=== PATIENT | female | born 1960 | race African-American/Black ===

== ENCOUNTER 2018-04-27 15:16 | Observation (INO) | payer OTHER ==
--- NOTE | 2018-04-27 16:40 | RAD REPORT ---
EXAM DESCRIPTION: CT - [id number] - 04/27/2018 4:32 pm CLINICAL HISTORY: Trauma, head and neck injury. fall COMPARISON: <Comparisons> TECHNIQUE: Axial 5 mm thick images of the head were obtained. Axial 2 mm thick images of the cervical spine were obtained with sagittal and coronal reconstruction images generated and reviewed. All CT scans are performed using dose optimization technique as appropriate and may include automated exposure control or mA/KV adjustment according to patient size. FINDINGS: CT HEAD WITHOUT CONTRAST: No acute hemorrhage, hydrocephalus or extra-axial collection is identified.Moderate generalized brain atrophy is present with mild periventricular and deep white matter chronic microvascular ischemic ch anges.No areas of brain edema or midline shift. The paranasal sinuses and mastoids are clear.The calvarium is intact. CT CERVICAL SPINE WITHOUT CONTRAST: No fracture or subluxation.Moderate cervical degenerative change.No prevertebral soft tissues swellin g is identified. IMPRESSION: No acute intracranial or cervical spine findings. Moderate cervical degenerative change.
--- NOTE | 2018-04-27 17:01 | RAD REPORT ---
EXAM DESCRIPTION: RAD - Pelvis - 04/27/2018 4:53 pm CLINICAL HISTORY: fall COMPARISON: No comparisons FINDINGS: The bones are demineralized. Mild osteoarthritis of both hips. No fracture or dislocation seen. No aggressive marrow lesion. Prominent fecal material in colon. IMPRESSION: No acute finding demonstrated.
--- NOTE | 2018-04-27 17:01 | RAD REPORT ---
EXAM DESCRIPTION: RAD - Chest Single View - 04/27/2018 4:53 pm CLINICAL HISTORY: fall Chest pain. COMPARISON: No comparisons FINDINGS: Portable technique limits examination quality. The lungs are grossly clear. The heart is normal in size. No displaced fractures. IMPRESSION: No acute intrathoracic process suspected.
[2018-04-27 17:13] LABS: Absolute Lymphocytes (CBC) 2.2 K/uL (0.7-4.9); Absolute Monocytes 0.7 K/uL (0.1-1.3); Absolute Neutrophil 3.9 K/uL (1.8-8.0); Basophils % 0.6 % (0-1.3); Eosinophils % 3.2 % (0-4.4); Hematocrit 35.4 % (36.0-45.0); Lymphocytes % 30.6 % (15.3-44.8); MCH 34.2 pg (27.0-35.0); MCV 100.8 fL (80-100); MPV 8.2 fL (7.6-11.3); Monocytes % 10.2 % (3.3-12.3); RBC Red Blood Cell Count 3.51 M/uL (3.86-4.86)
[2018-04-27 17:24] LABS: Potassium 3.7 mmol/L (3.5-5.1)
[2018-04-27] MEDS ORDERED: NACHLORIDE 0.45% 1,000 ML IV ONE (18:15)
--- NOTE | 2018-04-27 18:24 | EDPHYS ---
Physician Documentation [facility] Name: Jammie Muñoz Age: 58 yrs Sex: Female : 1960 Arrival Date: 04/27/2018 Time: 15:18 Bed 16 Private MD: ED Physician Ernesto Beltre HPI: 04/27 16:03 This 58 yrs old Black Female presents to ER via EMS with complaints of Head Injury cp Without LOC-Adult. 16:03 The patient or guardian reports injury. Context of injury: resulted from a fall. cp 16:03 Onset: The symptoms/episode began/occurred just prior to arrival. Associated signs and cp symptoms: Pertinent negatives: vomiting, fever. Nurse reports EMS was called to [facility] after patient was found on floor in room, alert and holding head. Historical: - Allergies: 20:14 No Known Allergies; lp1 - Home Meds: 20:46 amlodipine 5 mg tab 1 tab once daily [Active]; clonazepam 0.5 mg Oral tab 1 tab 2 times lp1 per day [Active]; Depakote ER 250 mg Oral Tb24 once daily [Active]; Depakote ER 500 mg Oral Tb24 twice a day [Active]; docusate sodium 100 mg Oral cap 1 cap 2 times per day [Active]; ferrous sulfate 325 mg (65 mg iron) Oral tab twice a day [Active]; folic acid 1 mg Oral tab 1 tab once daily [Active]; Lipitor 10 mg Oral tab nightly [Active]; Miralax 17 gram/dose Oral powd once daily [Active]; Nuedexta 20-10 mg oral cap 1 cap every 12 hours [Active]; trazodone 50 mg Oral tab nightly [Active]; Zyprexa 5 mg Oral tab 1 tab once daily [Active]; Zyprexa 15 mg Oral tab 1 tab once daily [Active]; Zyrtec 10 mg Oral tab 1 tab once daily [Active]; - PMHx: 20:50 Bipolar disorder; schizoaffective disorder; colon cancer; Dementia; Hypertension; lp1 Hyperlipidemia; constipation; Anxiety; Iron defeciency anemia; Pseudobulbar affect; Folate defeciency anemia; - PSHx: 20:50 Colon cancer surgery; lp1 - Immunization history:: Adult Immunizations unknown. - Social history:: Smoking status: unknown. - Ebola Screening: : No symptoms or risks identified at this time. ROS: 16:10 Constitutional: Negative for fever. cp 16:10 Abdomen/GI: Negative for vomiting. 16:10 Neuro: Negative for altered mental status. 16:10 Unable to obtain ROS due to baseline dementia. Exam: 16:15 Constitutional: The patient appears in no acute distress, alert, awake, cp non-diaphoretic, well developed, frail. 16:15 Head/Face: Normocephalic, atraumatic. cp 16:15 Eyes: Periorbital structures: appear normal, Pupils: equal, round, and reactive to light and accomodation, Conjunctiva: normal, no exudate, no injection, Sclera: no appreciated abnormality, Lids and lashes: appear normal, bilaterally. 16:15 ENT: External ear(s): are unremarkable, Ear canal(s): are normal, clear, TM's: bulging, is not appreciated, bilaterally, dullness, bilaterally, erythema, is not appreciated, bilaterally, Nose: is normal, Mouth: Lips: dry, Oral mucosa: moist, Posterior pharynx: Airway: no evidence of obstruction, patent. 16:15 Neck: C-spine: vertebral tenderness, is not appreciated, crepitus, is not appreciated. 16:15 Chest/axilla: Inspection: normal, Palpation: is normal, no crepitus, no tenderness. 16:15 Cardiovascular: Rate: normal, Rhythm: regular, Pulses: Pulses are 2+ in right radial artery and left radial artery. Edema: is not appreciated, JVD: is not appreciated. 16:15 Respiratory: the patient does not display signs of respiratory distress, Respirations: normal, no use of accessory muscles, no retractions, no splinting, no tachypnea, labored breathing, is not present, Breath sounds: are clear throughout, no decreased breath sounds, no stridor, no wheezing. 16:15 Abdomen/GI: Inspection: abdomen appears normal, Bowel sounds: active, all quadrants, Palpation: abdomen is soft and non-tender, in all quadrants, rebound tenderness, is not appreciated, involuntary guarding, is not appreciated. 16:15 Back: vertebral tenderness, is not appreciated. 16:15 Skin: cellulitis, is not appreciated, no rash present. cp 18:35 ECG was reviewed by the Attending Physician. cp Vital Signs: 15:27 BP 156 / 92; Pulse 77; Resp 18 S; Temp 97.2; Pulse Ox 96% on R/A; Pain 0/10; sg 16:30 BP 150 / 90; Pulse 77; Resp 16 S; Pulse Ox 98% on R/A; jl7 18:11 BP 143 / 90; Pulse 64; Resp 16 S; Pulse Ox 100% on R/A; jl7 20:15 BP 151 / 94; Pulse 74; Resp 18; Pulse Ox 100% on R/A; jb4 21:45 BP 177 / 108; Pulse 68; Resp 18; Pulse Ox 100% on R/A; jb4 Hui Coma Score: 15:27 Eye Response: to voice(3). Verbal Response: inappropriate words(3). Motor Response: sg withdraws from pain(4). Total: 10. Trauma Score (Adult): 15:27 Eye Response: spontaneous(1); Verbal Response: inappropriate words(0); Motor Response: sg localizes pain(1); Systolic BP: > 89 mm Hg(4); Respiratory Rate: 10 to 29 per min(4); Hui Score: 12; Trauma Score: 10 MDM: 15:19 Patient medically screened. cp 16:00 Differential diagnosis: Contusion of Intracranial bleed- electrolyte abnormality, cp seizure, dehydration. 18:00 Data reviewed: vital signs, nurses notes, lab test result(s), radiologic studies, CT cp scan, plain films. 18:00 Test interpretation: by ED physician or midlevel provider: plain radiologic studies. 18:30 Physician consultation: Griselda Kamara MD was contacted at 18:20, regarding admission, cp to the telemetry unit. patient's condition. 04/27 15:28 Order name: Basic Metabolic Panel; Complete Time: 17:36 04/27 15:28 Order name: CBC with Diff; Complete Time: 17:24 04/27 17:24 Interpretation: Normal except: RBC 3.51; HCT 35.4; MCV 100.8; RDW 16.3. 04/27 15:28 Order name: Creatinine for Radiology; Complete Time: 17:36 04/27 15:28 Order name: Type And Screen; Complete Time: 17:48 04/27 16:03 Order name: CK; Complete Time: 17:36 04/27 17:50 Order name: ABO/RH no charge; Complete Time: 17:51 EDWA 04/27 17:51 Interpretation: Reviewed. 04/27 15:38 Order name: XRAY Chest (1 view); Complete Time: 17:06 04/27 17:48 Interpretation: Report review. 04/27 15:38 Order name: XRAY Pelvis; Complete Time: 17:06 04/27 18:24 Order name: Osmolality, Serum 04/27 18:36 Order name: Troponin I 04/27 19:51 Order name: Urine Dipstick--Ancillary (enter results) ms 04/27 19:51 Order name: Urine --Ancillary (enter results) ms 04/27 20:31 Order name: Urine --Ancillary EDWA 04/27 20:31 Order name: Urine Dipstick-Ancillary EDWA 04/27 15:28 Order name: Labs collected and sent; Complete Time: 19:12 04/27 15:28 Order name: EKG; Complete Time: 15:29 04/27 15:28 Order name: EKG - Nurse/Tech; Complete Time: 19:13 04/27 15:38 Order name: CT Head C Spine; Complete Time: 17:06 04/27 17:07 Interpretation: Reviewed report. 04/27 18:24 Order name: Urine Dipstick-Ancillary (obtain specimen); Complete Time: 19:04 04/27 19:32 Order name: Diet 2 Gm Sodium; Complete Time: 19:33 cp EC:35 Rate is 62 beats/min. Rhythm is regular. TN interval is shortened at 110 msec. QRS cp interval is normal. QT interval is normal. Interpreted by me. Reviewed by me. Administered Medications: Discontinued: NS 0.45 % 1000 ml IV at 125 ml/hr continuous 17:42 CANCELLED (Physician Discretion): NS 0.45 % 1000 ml IV at bolus once cp 18:11 Drug: NS 0.45 % 1000 ml Route: IV; Rate: 125 ml/hr; Site: left upper arm; jl7 18:27 Follow up: IV Status: Order to discontinue infusion jl7 19:40 Drug: D5W 1000 ml Route: IV; Rate: 75 ml/hr; Site: right forearm; jb4 22:14 Follow up: Response: No adverse reaction; IV Status: Infusion continued upon admission jb4 Disposition: 22:30 Chart complete. cp Disposition: 04/27/18 18:23 Hospitalization ordered by Griselda Kamara for Observation. Preliminary diagnosis are Hypernatremia, Other slipping, tripping and stumbling and falls. - Bed requested for Telemetry/MedSurg (observation). - Status is Observation. jb4 - Condition is Stable. - Problem is new. - Symptoms have improved. UTI on Admission? No Addendum: 05/05/2018 16:44 Co-signature as Attending Physician, Ernesto Beltre MD. g s Signatures: Dispatcher [employer] EDMS Ruth Alfonso RN RN mw Yesika Guerrero RN RN lp1 Walter Matthews PA PA cp Cody Hernández RN RN jb4 Matthew Grove RN RN jl7 Ernesto Beltre MD MD gs Corrections: (The following items were deleted from the chart) 04/27 15:29 15:29 Urine Dipstick-Ancillary ordered. cp cp 17:42 17:38 NS 0.45 % 1000 ml IV at bolus once ordered. cp cp 18:54 18:23 Hospitalization Ordered by Griselda Kamara MD for Observation. Preliminary cp diagnosis is Hypernatremia. Bed requested for Telemetry/MedSurg (observation). Status is Observation. Condition is Stable. Problem is new. Symptoms have improved. UTI on Admission? No. cp 19:47 18:54 04/27/2018 18:23 Hospitalization Ordered by Griselda Kamara MD for Observation. Preliminary diagnosis is Hypernatremia; Other slipping, tripping and stumbling and falls. Bed requested for Telemetry/MedSurg (observation). Status is Observation. Condition is Stable. Problem is new. Symptoms have improved. UTI on Admission? No. cp 22:14 19:47 04/27/2018 18:23 Hospitalization Ordered by Griselda Kamara MD for Observation. jb4 Preliminary diagnosis is Hypernatremia; Other slipping, tripping and stumbling and falls. Bed requested for Telemetry/MedSurg (observation). Status is Observation. Condition is Stable. Problem is new. Symptoms have improved. UTI on Admission? No. mw
--- NOTE | 2018-04-27 18:24 | ER ---
Nurse's Notes [facility] Name: Jammie Muñoz Age: 58 yrs Sex: Female : 1960 Arrival Date: 04/27/2018 Time: 15:18 Bed 16 Private MD: Diagnosis: Hypernatremia;Other slipping, tripping and stumbling and falls Presentation: 04/27 15:18 Presenting complaint: EMS states: pt is a resident at [facility] and sg reports that they hear a noise in the pts room and found the patient on the floor holding her head, unknown LOC but the pt has been acting normally, reports having dementia and is normally aa\T\ox1. Care prior to arrival: None. Mechanism of Injury: Fall out of bed. Trauma event details: Injury occurred in the [facility], Injury occurred: in an institution. Injury occurred: April 27, 2018. 15:18 Acuity: ALFREDA 3 sg 15:18 Method Of Arrival: EMS: [facility] sg 16:00 Transition of care: patient was received from another setting of care (long-term care [facility]), [facility]. Onset of symptoms was April 27, 2018. Risk Assessment: Do you want to hurt yourself or someone else? Patient reports no desire to harm self or others. Initial Sepsis Screen: Does the patient meet any 2 criteria? No. Patient's initial sepsis screen is negative. Does the patient have a suspected source of infection? No. Patient's initial sepsis screen is negative. Historical: - Allergies: 20:14 No Known Allergies; lp1 - Home Meds: 20:46 amlodipine 5 mg tab 1 tab once daily [Active]; clonazepam 0.5 mg Oral tab 1 tab 2 times lp1 per day [Active]; Depakote ER 250 mg Oral Tb24 once daily [Active]; Depakote ER 500 mg Oral Tb24 twice a day [Active]; docusate sodium 100 mg Oral cap 1 cap 2 times per day [Active]; ferrous sulfate 325 mg (65 mg iron) Oral tab twice a day [Active]; folic acid 1 mg Oral tab 1 tab once daily [Active]; Lipitor 10 mg Oral tab nightly [Active]; Miralax 17 gram/dose Oral powd once daily [Active]; Nuedexta 20-10 mg oral cap 1 cap every 12 hours [Active]; trazodone 50 mg Oral tab nightly [Active]; Zyprexa 5 mg Oral tab 1 tab once daily [Active]; Zyprexa 15 mg Oral tab 1 tab once daily [Active]; Zyrtec 10 mg Oral tab 1 tab once daily [Active]; - PMHx: 20:50 Bipolar disorder; schizoaffective disorder; colon cancer; Dementia; Hypertension; lp1 Hyperlipidemia; constipation; Anxiety; Iron defeciency anemia; Pseudobulbar affect; Folate defeciency anemia; - PSHx: 20:50 Colon cancer surgery; lp1 - Immunization history:: Adult Immunizations unknown. - Social history:: Smoking status: unknown. - Ebola Screening: : No symptoms or risks identified at this time. Screenin:03 Abuse screen: Denies threats or abuse. Denies injuries from another. Nutritional jl7 screening: No deficits noted. Tuberculosis screening: No symptoms or risk factors identified. Fall Risk IV access (20 points). Total Knowles Fall Scale indicates No Risk (0-24 pts). Assessment: 16:30 General: Appears in no apparent distress. uncomfortable, Behavior is uncooperative. jl7 Pain: Denies pain. Neuro: Level of Consciousness is awake, alert, confused, Oriented to person. Cardiovascular: Patient's skin is warm and dry. Respiratory: Airway is patent Respiratory effort is even, unlabored, Respiratory pattern is regular, symmetrical. GI: No signs and/or symptoms were reported involving the gastrointestinal system. : No signs and/or symptoms were reported regarding the genitourinary system. EENT: No signs and/or symptoms were reported regarding the EENT system. Derm: Skin is pink, warm \T\ dry. Musculoskeletal: No signs and/or symptoms reported regarding the musculoskeletal system. 17:20 Reassessment: Pt attempting to get out of bed. Able to redirect pt at this time. jl7 18:30 Reassessment: Patient appears in no apparent distress at this time. Patient and/or jl7 family updated on plan of care and expected duration. Pain level reassessed. 19:00 Reassessment: Patient appears in no apparent distress at this time. Patient and/or jb4 family updated on plan of care and expected duration. Pain level reassessed. Pt family is at the bedside. 19:00 General: Appears in no apparent distress. comfortable, Behavior is calm, cooperative, jb4 appropriate for age, agitated. Pain: Denies pain. Neuro: Level of Consciousness is awake, alert, confused, Oriented to person. Cardiovascular: Patient's skin is warm and dry. Respiratory: Airway is patent Respiratory effort is even, unlabored, Respiratory pattern is regular, symmetrical. GI: No signs and/or symptoms were reported involving the gastrointestinal system. : No signs and/or symptoms were reported regarding the genitourinary system. EENT: No signs and/or symptoms were reported regarding the EENT system. Derm: Skin is pink, warm \T\ dry. Musculoskeletal: Circulation, motion, and sensation intact. 19:35 Reassessment: Provider updating family on plan of care. jb4 20:00 Reassessment: Patient appears in no apparent distress at this time. Patient and/or jb4 family updated on plan of care and expected duration. Pain level reassessed. Pt resting in bed. respirations even and unlabored. 20:51 Reassessment: Patient appears in no apparent distress at this time. No changes from jb4 previously documented assessment. Patient and/or family updated on plan of care and expected duration. Pain level reassessed. Attempted to call report. placed on hold for 10 minutes will call back. 21:30 Reassessment: Patient appears in no apparent distress at this time. No changes from jb4 previously documented assessment. Patient and/or family updated on plan of care and expected duration. Pain level reassessed. Family at the bedside. report called. Vital Signs: 15:27 BP 156 / 92; Pulse 77; Resp 18 S; Temp 97.2; Pulse Ox 96% on R/A; Pain 0/10; sg 16:30 BP 150 / 90; Pulse 77; Resp 16 S; Pulse Ox 98% on R/A; jl7 18:11 BP 143 / 90; Pulse 64; Resp 16 S; Pulse Ox 100% on R/A; jl7 20:15 BP 151 / 94; Pulse 74; Resp 18; Pulse Ox 100% on R/A; jb4 21:45 BP 177 / 108; Pulse 68; Resp 18; Pulse Ox 100% on R/A; jb4 Hui Coma Score: 15:27 Eye Response: to voice(3). Verbal Response: inappropriate words(3). Motor Response: sg withdraws from pain(4). Total: 10. Trauma Score (Adult): 15:27 Eye Response: spontaneous(1); Verbal Response: inappropriate words(0); Motor Response: sg localizes pain(1); Systolic BP: > 89 mm Hg(4); Respiratory Rate: 10 to 29 per min(4); Clay Score: 12; Trauma Score: 10 ED Course: 15:18 Patient arrived in ED. sg 15:19 Walter Matthews PA is PHCP. cp 15:19 Ernesto Beltre MD is Attending Physician. cp 15:20 Triage completed. sg 16:32 CT Head C Spine In Process Unspecified. EDMS 16:53 XRAY Chest (1 view) In Process Unspecified. EDMS 16:53 XRAY Pelvis In Process Unspecified. EDMS 16:58 Matthew Grove, RN is Primary Nurse. jl7 17:03 Patient has correct armband on for positive identification. Bed in low position. Call jl7 light in reach. Side rails up X 1. loaf counter on. Pulse ox on. NIBP on. Warm blanket given. 17:03 Initial lab(s) drawn, by wi, sent to lab. Inserted saline lock: 22 gauge in left upper jl7 arm, using aseptic technique. Blood collected. 17:43 CT completed. Patient tolerated procedure well. Patient moved to CT via stretcher. Patient moved back from CT. 18:22 Griselda Kamara MD is Hospitalizing Provider. cp 18:45 Straight cath inserted, using sterile technique, 16 Fr. Specimen obtained. Returned jl7 clear yellow urine. Patient tolerated well. 19:09 Arm band placed on right wrist. jl7 19:11 Report given to JAQUELINE Bowles. jl7 19:14 Primary Nurse role handed off by Matthew Grove RN jl7 19:31 Cody Hernández, JAQUELINE is Primary Nurse. jb4 22:08 No provider procedures requiring assistance completed. Patient admitted, IV remains in jb4 place. Administered Medications: Discontinued: NS 0.45 % 1000 ml IV at 125 ml/hr continuous 17:42 CANCELLED (Physician Discretion): NS 0.45 % 1000 ml IV at bolus once cp 18:11 Drug: NS 0.45 % 1000 ml Route: IV; Rate: 125 ml/hr; Site: left upper arm; jl7 18:27 Follow up: IV Status: Order to discontinue infusion jl7 19:40 Drug: D5W 1000 ml Route: IV; Rate: 75 ml/hr; Site: right forearm; jb4 22:14 Follow up: Response: No adverse reaction; IV Status: Infusion continued upon admission jb4 Outcome: 18:23 Decision to Hospitalize by Provider. cp 22:08 Admitted to Tele accompanied by tech, via stretcher, room 416, with chart, Report jb4 called to JAQUELINE Belcher 22:08 Condition: stable 22:08 Instructed on the need for admit, Demonstrated understanding of follow-up care. 22:14 Patient left the ED. jb4 Signatures: Dispatcher [employer] EDMS Acosta Harris, RN RN Eran Goldsmith Laura RN RN lp1 Walter Matthews PA PA cp Bryson, James, RN RN jb4 Matthew Grove RN RN jl7 Corrections: (The following items were deleted from the chart) 04/28 03:46 04/27 19:00 Reassessment: Patient appears in no apparent distress at this time. Patient jb4 and/or family updated on plan of care and expected duration. Pain level reassessed. Pt family is at the bedside. jb4
--- NOTE | 2018-04-27 18:28 | P.HP ---
Certification for Inpatient Patient admitted to: Observation With expected LOS: <2 Midnights Patient will require the following post-hospital care: None Practitioner: I am a practitioner with admitting privileges, knowledge of patient current condition, hospital course, and medical plan of care. Services: Services provided to patient in accordance with Admission requirements found in Title 42 Section 412.3 of the Code of Federal Regulations Patient History Date of Service: 04/28/18 Primary Care Provider: Agus Aldana Reason for admission: Fall History of Present Illness: 58-year-old female with significant past medical history who presented to the ED after having a fall at the snf. residential stated the patient has been having some generalized weakness for past couple of days and had a fall yesterday at the snf. Patient also has poor appetite and has been declining steadily over the past couple of months since she was in the hospital. Patient was recently seen at the [facility] and was then transferred over to snf after she had a acute worsening of her dementia. Family member at bedside. Medical airways Jimena patient's daughter who makes does medical decisions for her. Has been considering hospice due to advanced dementia. Allergies No Known Allergies Allergy (Unverified 04/27/18 19:57) Home medications list reviewed: Yes Home Medications: Amlodipine [Norvasc*] 5 mg PO DAILY 04/28/18 Atorvastatin Calcium [Lipitor*] 10 mg PO DAILY 04/28/18 Cetirizine HCl [Zyrtec*] 10 mg PO DAILY 04/28/18 Divalproex ER [Depakote *ER] 250 mg PO DAILY 04/28/18 Divalproex Sodium [Depakote ER] 500 mg PO BID 04/28/18 Docusate [Colace Cap*] 100 mg PO BID 04/28/18 Ferrous Sulfate [Ferrous Sulfate*] 325 mg PO DAILY 04/28/18 Folic Acid 1 mg PO DAILY 04/28/18 Losartan Potassium [Cozaar*] 50 mg PO BID #60 tablet 04/28/18 Nuedexta 1 tab PO BID 04/28/18 OLANZapine [Zyprexa*] 15 mg PO DAILY 04/28/18 Polyethylene Glycol 3350 [Miralax] 17 gm PO DAILY 04/28/18 Trazodone [Desyrel*] 50 mg PO BEDTIME 04/28/18 clonazePAM [Clonazepam] 0.5 mg PO BID 04/28/18 - Past Medical/Surgical History Has patient received pneumonia vaccine in the past: Yes Past Medical History: Unable to obtain Past Surgical History: Unable to obtain - Family History Family History: Reviewed- Non-Contributory - Family History Mother -: Stroke Notes: dementia Father -: Heart disease, Cancer Notes: colon Review of Systems 10-point ROS is otherwise unremarkable Physical Examination - Physical Exam General: Alert, In no apparent distress HEENT: Atraumatic, PERRLA, Mucous membr. moist/pink, EOMI, Sclerae nonicteric Neck: Supple, 2+ carotid pulse no bruit, No LAD, Without JVD or thyroid abnormality Respiratory: Clear to auscultation bilaterally, Normal air movement Cardiovascular: Regular rate/rhythm, Normal S1 S2 Gastrointestinal: Normal bowel sounds, No tenderness Musculoskeletal: No tenderness Integumentary: No rashes Neurological: Normal gait, Normal speech, Normal strength at 5/5 x4 extr, Normal tone, Normal affect Lymphatics: No axilla or inguinal lymphadenopathy - Studies Laboratory Data (last 24 hrs) 04/27/18 16:53: Creatinine 0.90 04/27/18 16:53: WBC 7.1, Hgb 12.0, Hct 35.4 L, Plt Count 228 04/27/18 16:53: Sodium 150 H, Potassium 3.7, BUN 18, Creatinine 0.90, Glucose 94 Assessment and Plan - Problems (Diagnosis) (1) Fall Onset Date: 04/28/18 Current Visit: Yes Status: Acute Plan: Unknown etiology -Fall precaution -PT consulted. appreciated Reccs Qualifiers: Encounter type: initial encounter Qualified Code(s): W19.XXXA - Unspecified fall, initial encounter (2) Dehydration Onset Date: 04/28/18 Current Visit: Yes Status: Acute Plan: Patient with Dehydration causing generalized Weakness -IV D5W -Monitor Lab closely Discharge Plan: Senior Living Plan to discharge in: 24 Hours - Advance Directives Does patient have a Living Will: No Does patient have a Durable POA for Healthcare: No Critical Care: Yes
[2018-04-27] MEDS ORDERED: D5W 1,000 ML IV ONE (19:39)
[2018-04-27 20:31] LABS: Urine Blood NEGATIVE (NEG); Urine Glucose NEGATIVE (NEG); Urine Protein NEGATIVE (NEG); Urine pH 7.5 (5.0-7.0)
[2018-04-27 22:24] VITALS: O2SAT 100
[2018-04-27] MEDS ORDERED: ACETAMINOPHEN 500 MG TAB PO PRN (22:33)
[2018-04-27] MEDS ORDERED: ONDANSETRON 4 MG/2 ML VIAL IV PRN (22:33)
[2018-04-27] MEDS: D5W 1,000 ML IV SCH (22:33)
[2018-04-27] MEDS ORDERED: TRAZODONE 50 MG TABLET PO SCH (23:30)
[2018-04-27] MEDS ORDERED: AMLODIPINE 5 MG TAB PO ONE (23:30)
[2018-04-27] MEDS: LOSARTAN POTASSIUM 50 MG TABLET PO SCH (23:45)
[2018-04-28 00:51] VITALS: BMI 16.1
[2018-04-28] MEDS ORDERED: KCL 20 MEQ/100 mL IVPB 20 MEQ/100 ML BAG IV SCH (03:00)
[2018-04-28 04:53] LABS: Absolute Lymphocytes (CBC) 2.2 K/uL (0.7-4.9); Absolute Monocytes 0.8 K/uL (0.1-1.3); Absolute Neutrophil 3.4 K/uL (1.8-8.0); Basophils % 0.6 % (0-1.3); Hematocrit 36.2 % (36.0-45.0); Lymphocytes % 33.1 % (15.3-44.8); MCH 34.3 pg (27.0-35.0); MCV 99.8 fL (80-100); MPV 8.2 fL (7.6-11.3); Monocytes % 12.2 % (3.3-12.3); RBC Red Blood Cell Count 3.62 M/uL (3.86-4.86)
[2018-04-28 05:03] LABS: Magnesium 1.8 mg/dL (1.8-2.4); Phosphorus 3.1 mg/dL (2.5-4.9)
[2018-04-28 05:04] LABS: ALT/SGPT 19 U/L (12-78); AST/SGOT 20 U/L (15-37); Albumin 3.1 g/dL (3.4-5.0); Alkaline Phosphatase 92 U/L (45-117); BUN Blood Urea Nitrogen 13 mg/dL (7-18); Bicarbonate 27 mmol/L (21-32); Bilirubin Total 0.7 mg/dL (0.2-1.0); Glucose Level 82 mg/dL (74-106); Potassium 3.5 mmol/L (3.5-5.1); Protein, Total 7.3 g/dL (6.4-8.2); Sodium Level 143 mmol/L (136-145)
[2018-04-28] MEDS: D5W 1,000 ML IV SCH (06:19)
[2018-04-28] MEDS ORDERED: MAGNESIUM SULFATE 1 gm IVPB 1 GM/100 ML BAG IV ONE (06:30)
--- NOTE | 2018-04-28 06:44 | EKG ---
Test Date: 2018-04-27 Test Time: 18:24:14 Document Photographer: SHAI MEASUREMENT RESULTS: Intervals: Rate: 62 AK: 110 QRSD: 70 QT: 426 QTc: 432 [place]: P: 72 AK: 110 QRS: -32 T: 15 INTERPRETIVE STATEMENTS: Sinus rhythm with short AK Left axis deviation Nonspecific ST abnormality Abnormal ECG No previous ECG available for comparison Electronically Signed On 04-28-18 06:43:11 CDT by Dusty Mazariegos
[2018-04-28] MEDS ORDERED: INFLUENZA VACCINE (for 3y+) 0.5 ML DOSE IMVAC ONE (08:00)
[2018-04-28] MEDS: LOSARTAN POTASSIUM 50 MG TABLET PO SCH (10:38)
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
[2018-04-28 18:26] VITALS: BP 142/90; TEMP 97.9
[2018-04-28] MEDS ORDERED: PROMOD 30 ML DOSE PO SCH (21:00)
[2018-04-28] MEDS ORDERED: ENSURE HIGH PROTEIN 237 ML CAN PO SCH (21:00)
[2018-04-28] MEDS ORDERED: LOSARTAN POTASSIUM 50 MG TABLET PO SCH (23:30)
== END 2018-04-28 18:43 ==
LOC: ER 15:16 → ERHOLD 18:56 → 4TH 21:45
PROVIDERS: ADMIT Family Medicine; ATTEND Family Medicine
DX: E86.0 Dehydration (principal); R53.1 Weakness; Z85.038 Personal history of other malignant neoplasm of large intestine; I10 Essential (primary) hypertension
CPT/HCPCS: 36415; 51702; 70450; 71045; 72125; 72170; 80048; 80053; 81003; 81025; 82550; 83735; 83930; 84100; 84443; 84484; 85025 ×2; 86850; 86900; 86901; 93005; 96360; 96361; 99285; G0378 ×2; J3475

== ENCOUNTER 2018-04-29 16:03 | Emergency (ER) | payer OTHER ==
--- OUTSIDE RECORDS SUMMARY | 2018-04-29 16:05 | XMS REPORT | Clinical Summary ---
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 contrast opacified. No aortic aneurysm or dissection. Mild/ moderate calcific atherosclerosis of the thoracic aorta. Lungs and large airways: Moderate emphysematous changes. Dependent subsegmental atelectasis/scarring. No focal or confluent airspace consolidation. . Pleura: No pleural effusion, pleural thickening, or pneumothorax. Heart and pericardium: Heart size is mildly enlarged. No pericardial effusion. Mediastinum and jamir: No mass or hematoma. Lymph nodes: No pathological adenopathy in the jamir, axilla or mediastinum. Chest wall: Unremarkable. Bones: Mild-moderate degenerative changes. Upper abdomen: 3.0 cm splenic hypodensity, likely benign lesion such as cyst or hemangioma. IMPRESSION: 1. Negative CTA examination for pulmonary embolism. 2. Moderate emphysematous changes. Lungs otherwise without focal or confluent airspace consolidation. 3. Mild cardiomegaly. Reflux of contrast into the inferior vena cava and hepatic veins, suggesting elevated right heart pressures. [facility]-[id number] Performing Organization Address [facility] Phone Number [facility] [address] [place] [address] Partial thromboplastin time, activated (05/12/2017 11:29 PM) PTT 28.4 23.0 - 36.0 sec [facility] DEPARTMENT OF Comment: PATHOLOGY AND GENOMIC PTT therapeutic range for unfractionated heparin is MEDICINE 61.0-112.0 seconds which corresponds to Anti-Xa 0.3-0.7 U/ml. Specimen Blood Performing Organization Address [facility] Phone Number [facility] DEPARTMENT OF [facility] AND [address] [place] [address] [place] [address] [facility] Prothrombin time with INR (05/12/2017 11:29 PM) Prothrombin time 12.9 12.0 - 15.0 sec [facility] DEPARTMENT OF PATHOLOGY AND [facility] INR 1.0 [facility] DEPARTMENT OF Comment: PATHOLOGY AND [facility] The International Normalized Ratio (INR) is a therapeutic MEDICINE monitoring tool for patients who are stable on oral anticoagulant therapy. An INR of 2.0-3.0 is suggested for deep vein thrombosis/pulmonary embolism. Specimen Blood Performing Organization Address [facility] Phone Number [facility] AND [address] [place] [address] [place] [address] [facility] Comprehensive metabolic panel (05/12/2017 11:29 PM) Sodium 145 135 - 148 mEq/L [facility] DEPARTMENT OF PATHOLOGY AND GENOMIC MEDICINE Potassium 3.7 3.5 - 5.0 mEq/L [facility] DEPARTMENT OF PATHOLOGY AND GENOMIC MEDICINE Chloride 105 98 - 112 mEq/L [facility] DEPARTMENT OF PATHOLOGY AND GENOMIC MEDICINE CO2 31 24 - 31 mEq/L [facility] DEPARTMENT OF PATHOLOGY AND GENOMIC MEDICINE Anion gap 9 7 - 15 mEq/L [facility] DEPARTMENT OF Comment: PATHOLOGY AND GENOMIC Starting from October , anion gap calculation MEDICINE no longer incorporates potassium. Please note the change. BUN 13 6 - 20 mg/dL [facility] DEPARTMENT OF PATHOLOGY AND GENOMIC MEDICINE Creatinine 1.2 (H) 0.5 - 0.9 mg/dL [facility] DEPARTMENT OF PATHOLOGY AND GENOMIC MEDICINE Glucose 107 (H) 65 - 99 mg/dL [facility] DEPARTMENT OF PATHOLOGY AND GENOMIC MEDICINE Calcium 9.3 8.3 - 10.2 mg/dL [facility] DEPARTMENT OF PATHOLOGY AND GENOMIC MEDICINE Protein 7.0 6.3 - 8.3 g/dL [facility] DEPARTMENT OF Comment: PATHOLOGY AND GENOMIC [place] 4.6-7.0 g/dL MEDICINE 1 week 4.4-7.6 g/dL 7 months-1year5.1-7.3 g/dL 1-2 years5.6-7.5 g/dL >3 years6.0-8.0 g/dL 18-150 6.3-8.3 g/dL Albumin 4.0 3.5 - 5.0 g/dL [facility] OF PATHOLOGY AND GENOMIC MEDICINE A/G ratio 1.3 0.7 - 3.8 [facility] DEPARTMENT OF PATHOLOGY AND GENOMIC MEDICINE Alkaline phosphatase 91 35 - 104 U/L [facility] DEPARTMENT OF PATHOLOGY AND GENOMIC MEDICINE AST 16 10 - 35 U/L [facility] DEPARTMENT OF PATHOLOGY AND GENOMIC MEDICINE ALT 9 5 - 50 U/L [facility] DEPARTMENT OF PATHOLOGY AND GENOMIC MEDICINE Total bilirubin 0.6 0.0 - 1.2 mg/dL [facility] OF PATHOLOGY AND GENOMIC MEDICINE Specimen Plasma specimen Performing Organization Address City/State/Zipcode Phone Number [facility] DEPARTMENT OF PATHOLOGY AND [address] [place] [address] [facility] ECG 12 lead (05/12/2017 10:45 PM) Ventricular rate 61 [facility] Atrial rate 61 [facility] LA interval 110 [facility] QRSD interval 90 [facility] QT interval 406 [facility] QTC interval 408 [facility] P axis 1 64 [facility] QRS axis 1 -37 [facility] T wave axis 22 [facility] EKG impression Sinus rhythm with short LA-Possible Left atrial enlargement- Left axis deviation-RSR' or QR pattern in V1 suggests right ventricular conduction delay-Left ventricular hypertrophy-Abnormal ECG-In automated comparison with ECG of 21-JAN-2017 02:59,-No [facility] MUSE significant change was found- Performing Organization Address City/State/Zipcode Phone Number [facility] MUSE [address] [place] [address] after 04/28/2017 Insurance Payer Benefit Plan / Group Subscriber ID Type Phone Address [facility] xxxxxxxxxxx
--- NOTE | 2018-04-29 16:45 | RAD REPORT ---
EXAM DESCRIPTION: CT - Head Brain Wo Cont - 04/29/2018 4:37 pm CLINICAL HISTORY: Alteration of awareness/confusion COMPARISON: 03/2018 TECHNIQUE: Computed axial tomography of the head was obtained. IV contrast was not requested. All CT scans are performed using dose optimization technique as appropriate and may include automated exposure control or mA/KV adjustment according to patient size. FINDINGS: An intracranial bleed is not seen . Diffuse cerebral atrophy is unchanged. Small low-density area within the right basal ganglia is uncha nged which may represent an old lacunar infarction. No extra-axial fluid collection is noted. Fluid within the sinuses/ mastoids is not seen. IMPRESSION: No acute intracranial abnormality is seen. If patient's symptoms persist MRI of the bra in would be recommended.
[2018-04-29 17:04] LABS: Absolute Lymphocytes (CBC) 1.3 K/uL (0.7-4.9); Absolute Monocytes 0.7 K/uL (0.1-1.3); Absolute Neutrophil 5.4 K/uL (1.8-8.0); Basophils % 0.5 % (0-1.3); Eosinophils % 1.8 % (0-4.4); Hematocrit 36.4 % (36.0-45.0); Lymphocytes % 17.1 % (15.3-44.8); MCH 34.3 pg (27.0-35.0); MCV 101.7 fL (80-100); MPV 8.4 fL (7.6-11.3); RBC Red Blood Cell Count 3.57 M/uL (3.86-4.86)
[2018-04-29 17:07] LABS: Protime INR 1.06
--- NOTE | 2018-04-29 17:13 | RAD REPORT ---
EXAM DESCRIPTION: Deandre Single View04/29/2018 5:06 pm CLINICAL HISTORY: Colon cancer COMPARISON: none FINDINGS: The lungs are hyperaerated. The lungs appear clear of acute infiltrate. The heart is normal size IMPRESSION: No acute abnormalities displayed
[2018-04-29 18:15] LABS: ALT/SGPT 19 U/L (12-78); AST/SGOT 23 U/L (15-37); Albumin 2.8 g/dL (3.4-5.0); Alkaline Phosphatase 83 U/L (45-117); BUN Blood Urea Nitrogen 23 mg/dL (7-18); Bicarbonate 30 mmol/L (21-32); Bilirubin Direct < 0.1 mg/dL (0-0.2); Bilirubin Total 0.3 mg/dL (0.2-1.0); Glucose Level 97 mg/dL (74-106); Magnesium 2.4 mg/dL (1.8-2.4); NT PRO-BNP 190 pg/mL (<125); Potassium 4.4 mmol/L (3.5-5.1); Sodium Level 148 mmol/L (136-145); Troponin (Emerg Dept Use Only) < 0.02 ng/mL (0.0-0.045)
[2018-04-29 20:15] LABS: Urine Blood NEGATIVE (NEG); Urine Glucose NEGATIVE (NEG); Urine Protein NEGATIVE (NEG); Urine pH 5.5 (5.0-7.0)
[2018-04-29 20:19] LABS: Calcium Oxalate Crystals- Ur FEW (NONE SEEN); Urine Amorphous Sediment 2+ /HPF (NONE SEEN); Urine Bacteria <20 /HPF (<20); Urine Culture Reflex Order NOT NEEDED; Urine RBC NONE SEEN /HPF (NONE SEEN)
--- NOTE | 2018-04-29 22:40 | EDPHYS ---
Physician Documentation [facility] Name: Jammie Muñoz Age: 58 yrs Sex: Female : 1960 Arrival Date: 04/29/2018 Time: 16:06 Bed 25 Private MD: ED Physician Linnea Dillon HPI: 04/29 17:00 This 58 yrs old Black Female presents to ER via EMS with complaints of Altered Mental pm1 Status. 17:00 The patient presents with decreased mental status. Onset: The symptoms/episode pm1 began/occurred today. Possible causes: unknown. Patient's baseline: Neuro: orientated to person, Motor: no deficits, Ambulation: walks without assistance. Patient presenting to the ER with complaints from EMS of altered mental status. Patient is a resident of [facility] due to dementia and wandering into patient rooms. She was acting altered from her baseline AAOx1 to self. Patient was given 250 NS by EMS and is a reported baseline. Historical: - Home Meds: 20:06 amlodipine 5 mg tab 1 tab once daily [Active]; clonazepam 0.5 mg Oral tab 1 tab 2 times rv per day [Active]; Depakote ER 250 mg Oral Tb24 once daily [Active]; Depakote ER 500 mg Oral Tb24 twice a day [Active]; docusate sodium 100 mg Oral cap 1 cap 2 times per day [Active]; ferrous sulfate 325 mg (65 mg iron) Oral tab twice a day [Active]; folic acid 1 mg Oral tab 1 tab once daily [Active]; Lipitor 10 mg Oral tab nightly [Active]; Miralax 17 gram/dose Oral powd once daily [Active]; Nuedexta 20-10 mg Oral cap 1 cap every 12 hours [Active]; trazodone 50 mg Oral tab nightly [Active]; Zyprexa 5 mg Oral tab 1 tab once daily [Active]; Zyprexa 15 mg Oral tab 1 tab once daily [Active]; Zyrtec 10 mg Oral tab 1 tab once daily [Active]; - PMHx: 16:15 Anxiety; Bipolar disorder; colon cancer; constipation; pseudobulbar affect; Iron ss defeciency anemia; Dementia; Folate defeciency anemia; Hyperlipidemia; Hypertension; schizoaffective disorder; - PSHx: 16:15 Colon cancer surgery; ss - Immunization history:: Adult Immunizations unknown. - Social history:: Smoking status: unknown. - Ebola Screening: : Patient denies exposure to infectious person Patient denies travel to an Ebola-affected area in the 21 days before illness onset. ROS: 20:30 Constitutional: Negative for fever, chills, and weight loss, Eyes: Negative for injury, pm1 pain, redness, and discharge, ENT: Negative for injury, pain, and discharge, Neck: Negative for injury, pain, and swelling, Cardiovascular: Negative for chest pain, palpitations, and edema, Respiratory: Negative for shortness of breath, cough, wheezing, and pleuritic chest pain, Abdomen/GI: Negative for abdominal pain, nausea, vomiting, diarrhea, and constipation, Back: Negative for injury and pain, : Negative for injury, bleeding, discharge, and swelling, MS/Extremity: Negative for injury and deformity, Skin: Negative for injury, rash, and discoloration. 20:30 Neuro: Positive for altered mental status, Negative for weakness. Exam: 20:30 Head/Face: Normocephalic, atraumatic. Eyes: Pupils equal round and reactive to light, pm1 extra-ocular motions intact. Lids and lashes normal. Conjunctiva and sclera are non-icteric and not injected. Cornea within normal limits. Periorbital areas with no swelling, redness, or edema. ENT: Nares patent. No nasal discharge, no septal abnormalities noted. Tympanic membranes are normal and external auditory canals are clear. Oropharynx with no redness, swelling, or masses, exudates, or evidence of obstruction, uvula midline. Mucous membranes moist. Neck: Trachea midline, no thyromegaly or masses palpated, and no cervical lymphadenopathy. Supple, full range of motion without nuchal rigidity, or vertebral point tenderness. No Meningismus. Chest/axilla: Normal chest wall appearance and motion. Nontender with no deformity. No lesions are appreciated. Cardiovascular: Regular rate and rhythm with a normal S1 and S2. No gallops, murmurs, or rubs. Normal PMI, no JVD. No pulse deficits. Respiratory: Lungs have equal breath sounds bilaterally, clear to auscultation and percussion. No rales, rhonchi or wheezes noted. No increased work of breathing, no retractions or nasal flaring. Abdomen/GI: Soft, non-tender, with normal bowel sounds. No distension or tympany. No guarding or rebound. No evidence of tenderness throughout. Back: No spinal tenderness. No costovertebral tenderness. Full range of motion. Skin: Warm, dry with normal turgor. Normal color with no rashes, no lesions, and no evidence of cellulitis. MS/ Extremity: Pulses equal, no cyanosis. Neurovascular intact. Full, normal range of motion. 20:30 Constitutional: The patient appears in no acute distress, alert, awake, comfortable, non-diaphoretic, non-toxic, well developed, well hydrated, well groomed. 20:30 Neuro: Orientation: is normal, Motor: is normal, moves all fours. Vital Signs: 16:17 BP 113 / 77; Pulse 58; Resp 18; Temp 98.0(TE); Pulse Ox 98% on R/A; Pain 0/10; ss 17:07 Pulse 76; Pulse Ox 100% on R/A; rv 20:02 BP 122 / 93; Pulse 71; Pulse Ox 99% on R/A; rv MDM: 16:09 Patient medically screened. pm1 22:38 Data reviewed: vital signs. Data interpreted: Pulse oximetry: on room air is 99 %. pm1 Interpretation: normal. Counseling: I had a detailed discussion with the patient and/or guardian regarding: the historical points, exam findings, and any diagnostic results supporting the discharge/admit diagnosis, lab results, the need for outpatient follow up, to return to the emergency department if symptoms worsen or persist or if there are any questions or concerns that arise at home. 04/29 16:23 Order name: Basic Metabolic Panel; Complete Time: 21:43 pm1 04/29 16:23 Order name: CBC with Diff; Complete Time: 17:34 pm1 04/29 16:23 Order name: LFT's; Complete Time: 21:43 pm1 04/29 16:23 Order name: Magnesium; Complete Time: 21:43 pm1 04/29 16:23 Order name: NT PRO-BNP; Complete Time: 21:43 pm1 04/29 16:23 Order name: PT-INR; Complete Time: 17:34 pm1 04/29 16:23 Order name: CT Head Brain wo Cont; Complete Time: 17:05 pm1 04/29 16:23 Order name: Troponin (emerg Dept Use Only); Complete Time: 21:43 pm1 04/29 16:23 Order name: XRAY Chest (1 view); Complete Time: 17:34 pm1 04/29 16:23 Order name: EKG; Complete Time: 16:24 pm1 04/29 16:23 Order name: Cardiac monitoring; Complete Time: 17:09 pm1 04/29 16:23 Order name: EKG - Nurse/Tech; Complete Time: 16:30 pm1 04/29 17:57 Order name: Urine Microscopic Only; Complete Time: 21:43 pm1 04/29 18:39 Order name: Urine Dipstick--Ancillary (enter results); Complete Time: 21:43 bd 04/29 16:23 Order name: IV Saline Lock; Complete Time: 16:31 pm1 04/29 16:23 Order name: Labs collected and sent; Complete Time: 16:55 pm1 04/29 16:23 Order name: O2 Per Protocol; Complete Time: 16:32 pm1 04/29 16:23 Order name: O2 Sat Monitoring; Complete Time: 16:32 pm1 04/29 17:57 Order name: Urine Dipstick-Ancillary (obtain specimen); Complete Time: 19:16 pm1 Administered Medications: No medications were administered Disposition: 04/29/18 22:39 Discharged to Home. Impression: Dehydration. - Condition is Stable. - Medication Reconciliation Form, Thank You Letter, Antibiotic Education, Prescription Opioid Use form. - Follow up: Emergency Department; When: As needed; Reason: Worsening of condition. Follow up: Private Physician; When: 2 - 3 days; Reason: Recheck today's complaints, Continuance of care, Re-evaluation by your physician. - Problem is new. - Symptoms have improved. Signatures: Dispatcher [employer] [facility] Nadia Allison RN RN ss Noel Sloan NP MANAGEMENT CONSULTING pm1 Power Guzman RN RN rv Corrections: (The following items were deleted from the chart) 04/30 00:01 04/29 22:39 04/29/2018 22:39 Discharged to Home. Impression: Dehydration. Condition is rv Stable. Forms are Medication Reconciliation Form, Thank You Letter, Antibiotic Education, Prescription Opioid Use. Follow up: Emergency Department; When: As needed; Reason: Worsening of condition. Follow up: Private Physician; When: 2 - 3 days; Reason: Recheck today's complaints, Continuance of care, Re-evaluation by your physician. Problem is new. Symptoms have improved. pm1
--- NOTE | 2018-04-29 22:40 | ER ---
Nurse's Notes [facility] Name: Jammie Muñoz Age: 58 yrs Sex: Female : 1960 Arrival Date: 04/29/2018 Time: 16:06 Bed 25 Private MD: Diagnosis: Dehydration Presentation: 04/29 16:09 Presenting complaint: EMS states: [facility] reports that patient was a little more altered ss than normal. EMS gave patient 250 NS bolus and states that patient "perked up". On arrival to ER, patient is at baseline mental status. Transition of care: patient was received from another setting of care (long-term care facility), [facility]. Onset of symptoms is unknown. Risk Assessment: Do you want to hurt yourself or someone else? Patient reports no desire to harm self or others. Initial Sepsis Screen: Does the patient meet any 2 criteria? No. Patient's initial sepsis screen is negative. Does the patient have a suspected source of infection? No. Patient's initial sepsis screen is negative. Care prior to arrival: None. 16:09 Method Of Arrival: EMS: [facility] ss 16:09 Acuity: ALFREDA 3 ss 16:20 Note prehospital BGL 129. ss Historical: - Home Meds: 20:06 amlodipine 5 mg tab 1 tab once daily [Active]; clonazepam 0.5 mg Oral tab 1 tab 2 times rv per day [Active]; Depakote ER 250 mg Oral Tb24 once daily [Active]; Depakote ER 500 mg Oral Tb24 twice a day [Active]; docusate sodium 100 mg Oral cap 1 cap 2 times per day [Active]; ferrous sulfate 325 mg (65 mg iron) Oral tab twice a day [Active]; folic acid 1 mg Oral tab 1 tab once daily [Active]; Lipitor 10 mg Oral tab nightly [Active]; Miralax 17 gram/dose Oral powd once daily [Active]; Nuedexta 20-10 mg Oral cap 1 cap every 12 hours [Active]; trazodone 50 mg Oral tab nightly [Active]; Zyprexa 5 mg Oral tab 1 tab once daily [Active]; Zyprexa 15 mg Oral tab 1 tab once daily [Active]; Zyrtec 10 mg Oral tab 1 tab once daily [Active]; - PMHx: 16:15 Anxiety; Bipolar disorder; colon cancer; constipation; pseudobulbar affect; Iron ss defeciency anemia; Dementia; Folate defeciency anemia; Hyperlipidemia; Hypertension; schizoaffective disorder; - PSHx: 16:15 Colon cancer surgery; ss - Immunization history:: Adult Immunizations unknown. - Social history:: Smoking status: unknown. - Ebola Screening: : Patient denies exposure to infectious person Patient denies travel to an Ebola-affected area in the 21 days before illness onset. Screenin:08 Abuse screen: Denies threats or abuse. Denies injuries from another. Nutritional rv screening: No deficits noted. Tuberculosis screening: No symptoms or risk factors identified. Fall Risk None identified. Assessment: 18:00 General: Appears in no apparent distress. comfortable, Behavior is calm, cooperative. rv 18:00 Pain: Denies pain. Neuro: Level of Consciousness is awake, alert, obeys commands, rv Oriented to person, place, time, situation. Cardiovascular: Capillary refill < 3 seconds. Respiratory: Airway is patent. GI: No signs and/or symptoms were reported involving the gastrointestinal system. : No signs and/or symptoms were reported regarding the genitourinary system. EENT: No signs and/or symptoms were reported regarding the EENT system. Derm: Decubitus located on sacrum approximately 1.5 cm to 2.5 cm is stage II HEALING STAGE is draining none noted. 22:44 Reassessment: CALLED [facility] FOR TRANSPORT. (ESTHER). rv Vital Signs: 16:17 BP 113 / 77; Pulse 58; Resp 18; Temp 98.0(TE); Pulse Ox 98% on R/A; Pain 0/10; ss 17:07 Pulse 76; Pulse Ox 100% on R/A; rv 20:02 BP 122 / 93; Pulse 71; Pulse Ox 99% on R/A; rv ED Course: 16:06 Patient arrived in ED. mr 16:09 Noel Sloan NP is PHCP. pm1 16:09 Linnea Dillon MD is Attending Physician. pm1 16:13 Triage completed. ss 16:17 Arm band placed on right wrist. ss 16:[address] jg6 16:30 Maintain EMS IV. Dressing intact. Good blood return noted. Site clean \\T\\ dry. Gauge \\T\\ vicente 3 site: 20 gauge in Right A/C. 16:35 EKG done, by product technology scientist. reviewed by Noel Sloan NP. sm3 16:37 CT Head Brain wo Cont In Process Unspecified. EDMS 16:40 Initial lab(s) drawn, by me, sent to lab. jp3 17:07 X-ray completed. Portable x-ray completed in exam room. Patient tolerated procedure mh1 well. 17:07 XRAY Chest (1 view) In Process Unspecified. EDMS 17:09 Basic Metabolic Panel Sent. jp3 17:09 LFT's Sent. jp3 17:09 Magnesium Sent. jp3 17:09 NT PRO-BNP Sent. jp3 17:09 PT-INR Sent. jp3 17:09 Troponin (emerg Dept Use Only) Sent. jp3 17:30 Placed in gown. Bed in low position. Call light in reach. Side rails up X 1. Side rails jp3 up X2. Warm blanket given. Pulse ox on. NIBP on. Assisted to bathroom. Cleaned of incontinence. Linen changed. 04/30 00:00 No provider procedures requiring assistance completed. IV discontinued, bleeding rv controlled, No redness/swelling at site. Pressure dressing applied. Administered Medications: No medications were administered Outcome: 04/29 22:39 Discharge ordered by . pm1 04/30 00:00 Discharged to [facility]. Report called to ESTHER lopez Condition: good Discharge instructions given to [facility]. 00:01 Patient left the ED. rv Signatures: Dispatcher [employer] [facility] Melinda Saucedo [facility] Nadia Allison, JAQUELINE RN Noel Harrison, FABI DIRECTOR OF PRODUCT MANAGEMENT pm1 Kerri Gerard 3 Power Guzman RN RN Fidel Dang 3 Jennie Leog6
[2018-04-30 00:33] VITALS: TEMP 98
[2018-04-30 00:35] VITALS: BP 122/93; O2SAT 99
--- NOTE | 2018-04-30 06:52 | EKG ---
Test Date: 2018-04-29 Test Time: 16:15:16 In Store Demonstrator: [place] MEASUREMENT RESULTS: Intervals: Rate: 84 ND: 108 QRSD: 72 QT: 372 QTc: 439 [place]: P: 73 ND: 108 QRS: -29 T: 39 INTERPRETIVE STATEMENTS: Sinus rhythm with short ND Right atrial enlargement Nonspecific ST abnormality Abnormal ECG Compared to ECG 04/27/2018 18:24:14 Atrial abnormality now present Left-axis deviation no longer present ST (T wave) deviation still present Electronically Signed On 04-30-18 06:50:35 CDT by Keo Wade
== END 2018-04-30 00:01 | disposition home or self-care (01) ==
LOC: ER 16:03
DX: E86.0 Dehydration (principal); I10 Essential (primary) hypertension; E78.5 Hyperlipidemia, unspecified; F31.9 Bipolar disorder, unspecified; D50.9 Iron deficiency anemia, unspecified; Z85.038 Personal history of other malignant neoplasm of large intestine
CPT/HCPCS: 36415; 70450; 71045; 80048; 80076; 81003; 81015; 83735; 83880; 84484; 85025; 85610; 93005; 99285

== ENCOUNTER 2018-06-12 09:12 | Emergency (ER) | payer OTHER ==
--- OUTSIDE RECORDS SUMMARY | 2018-06-12 09:14 | XMS REPORT | Clinical Summary ---
:1960 Author Organization [facility] Address [address] [place] [address] Care Team Providers Name Role Phone Christian Bell MD Primary Care Provider Allergies No Known Allergies Medications Medication Sig Dispensed Refills Start Date End Date Status aspirin (ECOTRIN) Take 81 mg by 0 Active 81 MG enteric mouth as needed. coated tablet metoprolol Take 50 mg by 0 Active tartrate mouth 2 (two) (LOPRESSOR) 50 mg times a day. Not tablet taking consistently telmisartan-hydroc Take 1 tablet by 0 Active hlorothiazid mouth daily. (MICARDIS HCT) 80-25 mg per tablet telmisartan-hydroc Take 1 tablet by 0 Active hlorothiazid mouth daily. Not (MICARDIS HCT) taking 80-12.5 mg per consistently tablet esomeprazole Take 40 mg by 0 Active (NexIUM) 40 MG mouth daily capsule before breakfast. Not taking conssitently sertraline Take 25 mg by 0 Active (ZOLOFT) 25 MG mouth daily. Not tablet taking consistently NIFEdipine XL Take 90 mg by 0 Active (PROCARDIA XL) 90 mouth daily. Not MG 24 hr tablet taking conssitently donepezil Take 10 mg by 0 Discontinued (ARICEPT) 10 MG mouth nightly. 7 tablet memantine Take 1 tablet (5 30 tablet 0 05/17/2017 (NAMENDA) 5 MG mg total) by 7 tablet mouth daily for 30 days. QUEtiapine Take 1 tablet (25 30 tablet 0 05/17/2017 (SEROquel) 25 MG mg total) by 7 tablet mouth nightly for 30 days. mirtazapine Take 15 mg by 0 Discontinued (REMERON) 15 MG mouth nightly. 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 (Primary Dx) 07/05/2017 Refill Neurology Dago Gordon RN 06/13/2017 Hospital Encounter Radiology Tye Chavez, Cognitive disorder MD after 06/11/2017 Family History Medical History Relation Name Comments Heart attack Brother 40 Stroke Father Dementia Mother Pneumonia Mother Relation Name Status Comments Brother Father Mother Social History Tobacco Use Types Packs/Day Years Used Date Current Every Day Smoker 1 Smokeless Tobacco: Never Used Tobacco Cessation: Ready to Quit: No Alcohol Use Drinks/Week oz/Week Comments No Sex Assigned at Date Recorded Not on file Job Start Date Occupation Industry Not on file Not on file Not on file Travel History Travel Start Travel End No recent travel history available. Last Filed Vital Signs Not on file Plan of Treatment Health Maintenance Due Date Last Done Comments MMR VACCINES (1 of 1 - 02/20/1960 Standard series) VARICELLA VACCINES (1 of 2 - 02/20/1972 2-dose adolescent series) CERVICAL CANCER SCREENING 02/20/1980 COLON CANCER SCREENING 2009 SHINGRIX VACCINE (1 of 2) 2009 BREAST CANCER SCREENING 11/15/2017 11/16/2015, 05/28/2014, 05/28/2014, Additional history exists INFLUENZA VACCINE 02/26/2018 HEPATITIS B VACCINES Aged Out No longer eligible based on patient's age to complete this topic IPV VACCINES Aged Out No longer eligible based on patient's age to complete this topic MENINGOCOCCAL VACCINE Aged Out No longer eligible based on patient's age to complete this topic Procedures Procedure Name Priority Date/Time Associated Diagnosis Comments MRI BRAIN WO Routine 06/13/2017 10:24 AM Cognitive disorder Results for this CONTRAST WATERPROOFING MACHINE OPERATOR procedure are in the results section. after 06/11/2017 Results MRI Brain Wo Contrast (06/13/2017 10:24 AM WATERPROOFING MACHINE OPERATOR) Narrative Performed At EXAMINATION: MRI BRAIN WO [...] findings can be seen with Alzheimer's disease. [id number] Procedure Note Hm Interface, Radiology Results Incoming - 06/13/2017 11:57 AM WATERPROOFING MACHINE OPERATOR EXAMINATION: MRI BRAIN WO CONTRAST CLINICAL HISTORY: [...] findings can be seen with Alzheimer's disease. [id number] Performing Organization Address City/State/Zipcode Phone Number [facility] [address] [place] [address] after 06/11/2017 Insurance Payer Benefit Plan / Group Subscriber ID Type Phone Address [facility] xxxxxxxxxxx Advance Directives Patient has advance care planning documents, and code status on file. For more information, please contact:Khai Fitch[address] [place] [address] Code Status Date Activated Date Inactivated Comments Full Code 05/13/2017 3:31 AM 05/18/2017 8:06 AM Code Status decision reached by: Patient
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
[2018-06-12 10:28] VITALS: TEMP 98.1
[2018-06-12 10:29] VITALS: BP 100/70; O2SAT 100
== END 2018-06-12 10:21 | disposition home or self-care (01) ==
LOC: ER 09:12
DX: Z04.41 Encounter for examination and observation following alleged adult rape (principal)
CPT/HCPCS: 99281

== ENCOUNTER 2019-04-17 17:20 | Emergency (ER) | payer OTHER ==
--- OUTSIDE RECORDS SUMMARY | 2019-04-17 17:22 | XMS REPORT | Clinical Summary ---
:1960 Author Organization [facility] Address [address] [place] [address] Care Team Providers Name Role Phone Christian Bell MD Primary Care Provider Allergies No Known Allergies Medications Medication Sig Dispensed Refills Start Date End Date Status aspirin (ECOTRIN) 81 Take 81 mg by mouth 0 Active MG enteric coated as needed. tablet metoprolol tartrate Take 50 mg by mouth 0 Active (LOPRESSOR) 50 mg 2 (two) times a day. tablet Not taking consistently telmisartan-hydrochl Take 1 tablet by 0 Active orothiazid (MICARDIS mouth daily. HCT) 80-25 mg per tablet telmisartan-hydrochl Take 1 tablet by 0 Active orothiazid (MICARDIS mouth daily. Not HCT) 80-12.5 mg per taking consistently tablet esomeprazole Take 40 mg by mouth 0 Active (NexIUM) 40 MG daily before capsule breakfast. Not taking conssitently sertraline (ZOLOFT) Take 25 mg by mouth 0 Active 25 MG tablet daily. Not taking consistently NIFEdipine XL Take 90 mg by mouth 0 Active (PROCARDIA XL) 90 MG daily. 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
--- NOTE | 2019-04-17 18:45 | RAD REPORT ---
EXAM DESCRIPTION: CT - Head C Spine Mpr Wo Con - 04/17/2019 6:19 pm CLINICAL HISTORY: Head and neck injury status post fall. Head and neck pain COMPARISON: 2018 TECHNIQUE: Computed axial tomography of the head and cervical spine was obtained. Sagittal and coronal reconstruction was performed. All CT scans are performed using dose optimization technique as appropriate and may include automated exposure control or mA/KV adjustment according to patient size. FINDINGS: An intracranial bleed is not seen. Diffuse cerebral atrophy. . An extra-axial fluid collec tion is not noted.Fluid within the visualized sinuses and mastoids is not seen A cervical fracture is not visualized. No dislocation is noted. Spondylosis involves the cervical spi ne 9 millimeter nodule left lobe thyroid gland IMPRESSION: No acute intracranial abnormality is seen. A cervical fracture is not visualized. If the patient continues to have symptoms to suggest intracra nial /spinal cord pathology then MRI would be recommended
[2019-04-17] MEDS ORDERED: LIDOCAINE 1% 20 ML MDV ONE (19:58)
--- NOTE | 2019-04-17 20:42 | EDPHYS ---
Physician Documentation [facility] Name: Jammie Muñoz Age: 59 yrs Sex: Female : 1960 Arrival Date: 04/17/2019 Time: 17:26 Bed 14 Private MD: ED Physician Walter Grimaldo HPI: 04/17 18:49 This 59 yrs old Black Female presents to ER via EMS with complaints of Fall Injury. kdr 18:49 Details of fall: The patient fell from an upright position, Unknown as she is kdr contracted and unable to get to the bathroom without help. She was found on the floor and noted to have a lacerated lip. Historical: - Allergies: 17:29 No Known Allergies; bp - PMHx: 17:29 Anxiety; Bipolar disorder; colon cancer; constipation; Dementia; Folate defeciency bp anemia; Hyperlipidemia; Hypertension; Iron defeciency anemia; pseudobulbar affect; schizoaffective disorder; - Immunization history:: Adult Immunizations up to date. - Social history:: Smoking status: Patient/guardian denies using tobacco. - Ebola Screening: : No symptoms or risks identified at this time. ROS: 18:50 Constitutional: Unable to obtqain secondary to dementia kdr 18:50 Unable to obtain ROS due to baseline dementia. Exam: 18:51 Constitutional: This is a well developed, well nourished patient who is clearly kdr demented and with dauughter at bedside Head/Face: Normocephalic, atraumatic - the patient does have a laceratioin to the upper lip and her teeth are slightly loose on the maxilla Eyes: Pupils equal round and reactive to light, extra-ocular motions intact. Lids and lashes normal. Conjunctiva and sclera are non-icteric and not injected. Cornea within normal limits. Periorbital areas with no swelling, redness, or edema. Neck: Trachea midline, no thyromegaly or masses palpated, and no cervical lymphadenopathy. Supple, full range of motion without nuchal rigidity, or vertebral point tenderness. No Meningismus. Chest/axilla: Normal chest wall appearance and motion. Nontender with no deformity. No lesions are appreciated. Cardiovascular: Regular rate and rhythm with a normal S1 and S2. No gallops, murmurs, or rubs. Normal PMI, no JVD. No pulse deficits. Respiratory: Lungs have equal breath sounds bilaterally, clear to auscultation and percussion. No rales, rhonchi or wheezes noted. No increased work of breathing, no retractions or nasal flaring. Abdomen/GI: Soft, non-tender, with normal bowel sounds. No distension or tympany. No guarding or rebound. No evidence of tenderness throughout. Back: No spinal tenderness. No costovertebral tenderness. Full range of motion. 18:51 Musculoskeletal/extremity: Lower extremities are contracted and upper extremities do not illicit apparent pain with manipulation. She is not verba a all. Vital Signs: 17:29 BP 161 / 85; Pulse 52; Resp 20; Temp 97.6; Pulse Ox 100% ; Weight 54.43 kg; bp 18:10 BP 163 / 95; Pulse 90; Resp 24; Pulse Ox 98% ; bp 18:34 BP 158 / 91; Pulse 46; Resp 14; Pulse Ox 100% ; bp 20:02 BP 178 / 95; Pulse 60; Resp 16; Pulse Ox 100% on R/A; jb4 21:00 BP 164 / 99; Pulse 55; Resp 18; Pulse Ox 98% on R/A; jb4 22:43 BP 169 / 96; Pulse 50; Resp 18; Pulse Ox 100% on R/A; jb4 04/18 01:00 BP 166 / 84; Pulse 47; Resp 16; Pulse Ox 100% on R/A; jb4 02:00 BP 166 / 79; Pulse 66; Resp 18; Temp 98.0(TE); Pulse Ox 100% on R/A; jb4 Laceration: 04/17 20:40 Wound Repair of 1.5cm ( 0.6in ) subcutaneous laceration to upper lip. Linear shaped.. cp Distal neuro/vascular/tendon intact. Anesthesia: Local anesthetic administered with 3 mls of 1% lidocaine. Wound prep: Simple cleansing by nurse. Skin closed with 3 5-0 Vicryl using simple sutures and sterile technique. Patient tolerated well. MDM: 18:51 Data reviewed: vital signs. kdr 19:33 Patient medically screened. [facility] 04/17 18:03 Order name: CT Head C Spine; Complete Time: 20:40 kdr Administered Medications: 20:45 Drug: Lidocaine (1 %) 1 application {Note: Administered by ER provider..} Volume: 20 jb4 ml; Route: Infiltration; Disposition: 04/17/19 20:41 Discharged to Home. Impression: Laceration without foreign body of lip - upper. - Condition is Stable. - Discharge Instructions: Facial Laceration. - Medication Reconciliation Form, Thank You Letter, Antibiotic Education, Prescription Opioid Use, SBAR form form. - Follow up: Emergency Department; When: As needed; Reason: Worsening of condition. - Problem is new. - Symptoms have improved. Addendum: 04/20/2019 09:01 Co-signature as Attending Physician, Damon Landa MD I agree with the assessment and k dr plan of care. Signatures: Dispatcher [employer] EDMS Walter Grimaldo MD MD cha Rittger, Kevin, MD MD kdr Page, Corey, PA PA cp Bryson, James, RN RN jbJose Alberto Engel RN RN bp Corrections: (The following items were deleted from the chart) 04/18 02:20 04/17 20:41 04/17/2019 20:41 Discharged to Home. Impression: Laceration without foreign jb4 body of lip - upper. Condition is Stable. Forms are Medication Reconciliation Form, Thank You Letter, Antibiotic Education, Prescription Opioid Use. Follow up: Emergency Department; When: As needed; Reason: Worsening of condition. Problem is new. Symptoms have improved. cp
--- NOTE | 2019-04-17 20:42 | ER ---
Nurse's Notes [facility] Name: Jammie Muñoz Age: 59 yrs Sex: Female : 1960 Arrival Date: 04/17/2019 Time: 17:26 Bed 14 Private MD: Diagnosis: Laceration without foreign body of lip-upper Presentation: 04/17 17:27 Presenting complaint: EMS states: UNWITNESSED FALL WITH NO LOC OR CURRENT COMPLAINTS. bp Transition of care: patient was received from another setting of care (long-term care facility), [facility]. Onset of symptoms is unknown. Risk Assessment: Do you want to hurt yourself or someone else? Unable to obtain. Initial Sepsis Screen: Does the patient meet any 2 criteria? No. Patient's initial sepsis screen is negative. Does the patient have a suspected source of infection? No. Patient's initial sepsis screen is negative. Care prior to arrival: None. 17:27 Method Of Arrival: EMS: [facility] bp 17:27 Acuity: ALFREDA 3 bp Triage Assessment: 17:29 General: Appears in no apparent distress. comfortable, Behavior is inappropriate for bp age, restless, uncooperative. Pain: Denies pain. EENT: No deficits noted. Neuro: Level of Consciousness is confused, Oriented to none. Cardiovascular: No deficits noted. Respiratory: No deficits noted. GI: No signs and/or symptoms were reported involving the gastrointestinal system. : No signs and/or symptoms were reported regarding the genitourinary system. Derm: No deficits noted. Musculoskeletal: No deficits noted. Historical: - Allergies: 17:29 No Known Allergies; bp - PMHx: 17:29 Anxiety; Bipolar disorder; colon cancer; constipation; Dementia; Folate defeciency bp anemia; Hyperlipidemia; Hypertension; Iron defeciency anemia; pseudobulbar affect; schizoaffective disorder; - Immunization history:: Adult Immunizations up to date. - Social history:: Smoking status: Patient/guardian denies using tobacco. - Ebola Screening: : No symptoms or risks identified at this time. Screenin:32 Abuse screen: Denies threats or abuse. Denies injuries from another. Nutritional bp screening: No deficits noted. Tuberculosis screening: No symptoms or risk factors identified. Fall Risk Fall in past 12 months (25 points). Secondary diagnosis (15 points) dementia, No IV (0 pts). Ambulatory Aid- None/Bed Rest/Nurse Assist (0 pts). Gait- Weak (10 pts.). Mental Status- Overestimates/Forgets Limitations (15 pts.). Total Knowles Fall Scale indicates High Risk Score (45 or more points). Fall prevention measures have been instituted. Side Rails Up X 2 Placed Close to Nursing Station Frequent Obs/Assessments Occuring Family Present and informed to notify staff if the need to leave the bedside As available patient and family educated on Fall Prevention Program and Strategies. Assessment: 17:32 General: SEE TRIAGE NOTE. 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 bp 18:34 Reassessment: PT RETURNED FROM CT. bp 19:19 Reassessment: Patient appears in no apparent distress at this time. Patient and/or jb4 family updated on plan of care and expected duration. Pain level reassessed. PT is resting in bed, respirations are even and unlabored, no s/s of distress or pain noted. Family updated on plan of care. 19:25 General: Appears in no apparent distress. comfortable, Behavior is calm. Pain: Denies jb4 pain. Neuro: Level of Consciousness is awake, alert, Oriented to person. Cardiovascular: Patient's skin is warm and dry. Respiratory: Airway is patent Respiratory effort is even, unlabored, Respiratory pattern is regular, symmetrical. GI: No deficits noted. No signs and/or symptoms were reported involving the gastrointestinal system. : No deficits noted. No signs and/or symptoms were reported regarding the genitourinary system. EENT: No deficits noted. No signs and/or symptoms were reported regarding the EENT system. Derm: Skin is intact, Skin is dry, Skin is normal, Skin temperature is warm. Musculoskeletal: Circulation, motion, and sensation intact. Range of motion: intact in all extremities. 20:30 Reassessment: Patient appears in no apparent distress at this time. No changes from jb4 previously documented assessment. Patient and/or family updated on plan of care and expected duration. Pain level reassessed. 21:09 Reassessment: Pt d/c pending transportation back to [facility]. jb4 21:12 Reassessment: Report called to Primary nurse at [facility]. jb4 21:40 Reassessment: Patient appears in no apparent distress at this time. No changes from 4 previously documented assessment. Patient and/or family updated on plan of care and expected duration. Pain level reassessed. Called [facility], was informed that [facility] will be receiving the patient but it will be a coupe hours. 23:00 Reassessment: Patient appears in no apparent distress at this time. Patient and/or [facility] family updated on plan of care and expected duration. Pain level reassessed. PT is resting in bed with eyes closed respirations even and unlabored. 04/18 00:00 Reassessment: Patient appears in no apparent distress at this time. No changes from jb4 previously documented assessment. Patient and/or family updated on plan of care and expected duration. Pain level reassessed. 01:00 Reassessment: Patient appears in no apparent distress at this time. No changes from jb4 previously documented assessment. Patient and/or family updated on plan of care and expected duration. Pain level reassessed. 02:05 Reassessment: Patient appears in no apparent distress at this time. No changes from jb4 previously documented assessment. Patient and/or family updated on plan of care and expected duration. Pain level reassessed. report given to [facility], Pt transferred to [facility]. Vital Signs: 04/17 17:29 BP 161 / 85; Pulse 52; Resp 20; Temp 97.6; Pulse Ox 100% ; Weight 54.43 kg; bp 18:10 BP 163 / 95; Pulse 90; Resp 24; Pulse Ox 98% ; bp 18:34 BP 158 / 91; Pulse 46; Resp 14; Pulse Ox 100% ; bp 20:02 BP 178 / 95; Pulse 60; Resp 16; Pulse Ox 100% on R/A; jb4 21:00 BP 164 / 99; Pulse 55; Resp 18; Pulse Ox 98% on R/A; jb4 22:43 BP 169 / 96; Pulse 50; Resp 18; Pulse Ox 100% on R/A; jb4 04/18 01:00 BP 166 / 84; Pulse 47; Resp 16; Pulse Ox 100% on R/A; jb4 02:00 BP 166 / 79; Pulse 66; Resp 18; Temp 98.0(TE); Pulse Ox 100% on R/A; jb4 ED Course: 04/17 17:26 Patient arrived in ED. bp 17:28 Triage completed. bp 17:29 Arm band placed on. bp 17:32 Patient has correct armband on for positive identification. Placed in gown. Bed in low bp position. Call light in reach. Side rails up X2. Adult w/ patient. 17:35 Damon Landa MD is Attending Physician. kdr 18:10 Jose Alberto Curran, RN is Primary Nurse. bp 18:20 CT Head C Spine In Process Unspecified. EDMS 19:22 Walter Matthews PA is PHCP. cp 19:33 Attending Physician role handed off by Damon Landa MD cha 19:33 Walter Grimaldo MD is Attending Physician. [facility] 04/18 02:19 No provider procedures requiring assistance completed. Patient did not have IV access jb4 during this emergency room visit. Administered Medications: 04/17 20:45 Drug: Lidocaine (1 %) 1 application {Note: Administered by ER provider..} Volume: 20 jb4 ml; Route: Infiltration; Outcome: 20:41 Discharge ordered by . cp 04/18 02:07 Discharged to senior living. jb4 Condition: stable Discharge instructions given to patient, family, Instructed on discharge instructions, follow up and referral plans. Demonstrated understanding of instructions, follow-up care. 02:20 Patient left the ED. jb4 Signatures: Dispatcher [employer] EDNE Watler Grimaldo MD MD cha Rittger, Kevin, MD MD kdr Page, Corey, PA PA cp Bryson, James, JAQUELINE RN jb4 Jose Alberto Curran, RN RN bp Corrections: (The following items were deleted from the chart) 04/17 21:42 21:20 Reassessment: Report called to Primary nurse at [facility]. jb4 jb4
[2019-04-18 02:37] VITALS: TEMP 97.6
[2019-04-18 02:45] VITALS: O2SAT 100
[2019-04-18 02:50] VITALS: BP 166/84
== END 2019-04-18 02:20 | disposition home or self-care (01) ==
LOC: ER 17:20
PROC: 0CQ0XZZ Repair Upper Lip, External Approach (ICD-10-PCS; principal; 2019-04-17)
DX: S01.511A Laceration without foreign body of lip, initial encounter (principal); W18.30XA Fall on same level, unspecified, initial encounter; Y93.89 Activity, other specified; Y92.012 Bathroom of single-family (private) house as the place of occurrence of the external cause
CPT/HCPCS: 70450; 72125; 99284

== ENCOUNTER 2020-07-22 15:55 | Emergency (ER) | payer OTHER ==
--- OUTSIDE RECORDS SUMMARY | 2020-07-22 15:57 | XMS REPORT | Clinical Summary ---
:1960 Author Organization [facility] Address [address] [place] [address] Care Team Providers Name Role Phone Rodney Bell MD Primary Care Provider Allergies No Known Active Allergies Medications Medication Sig Dispensed Refills Start [...] status 05/15/2017 Chest pain in adult 05/13/2017 Medical History Medical History Date Comments Alzheimer disease (HCC) Hypertension Alzheimer disease (HCC) Dementia (HCC) Cancer (HCC) colon cancer Depression Family History Medical History Relation Name Comments [...] Not on file Last Filed Vital Signs Not on file Plan of Treatment Health Maintenance Due Date Last Done Comments COVID-19 VACCINE (#1) 1975 CERVICAL CANCER SCREENING 02/20/1980 COLONOSCOPY SCREENING 2009 SHINGLES VACCINES (#1) 2009 BREAST CANCER SCREENING 11/15/2017 11/16/2015, 05/28/2014, 05/28/2014, Additional history exists INFLUENZA VACCINE 02/27/2020 Results Not on fileafter 07/22/2019 Advance Directives For more information, please contact: [phone] Type Date Recorded Patient Iridologist Explanati on Advance Directives, 05/15/2017 10:29 AM Living Will and Medical Power of Table Games Floor Supervisor Code Status Date Activated Date Inactivated Comments Full Code 05/13/2017 3:31 AM 05/18/2017 8:06 AM Code Status decision reached by: Patient
[2020-07-22 17:06] LABS: Absolute Lymphocytes (CBC) 0.7 K/uL (0.7-4.9); Basophils % 0.4 % (0-1.3); Hematocrit 39.3 % (36.0-45.0); Lymphocytes % 6.5 % (15.3-44.8); MPV 8.4 fL (7.6-11.3); RBC Red Blood Cell Count 4.07 M/uL (3.86-4.86)
[2020-07-22 17:26] LABS: Protime INR 1.1
[2020-07-22 17:28] LABS: ALT/SGPT 15 U/L (12-78); AST/SGOT 17 U/L (15-37); Albumin 3.2 g/dL (3.4-5.0); Alkaline Phosphatase 88 U/L (45-117); Amylase 127 U/L (25-115); BUN Blood Urea Nitrogen 17 mg/dL (7-18); Bicarbonate 32 mmol/L (21-32); Bilirubin Direct 0.2 mg/dL (0-0.2); Bilirubin Total 0.5 mg/dL (0.2-1.0); CKMB Creatine Kinase MB 3.1 ng/mL (0.3-3.6); Creatine Phosphokinase 269 U/L (26-192); Glucose Level 146 mg/dL (74-106); Lipase 254 U/L (73-393); Potassium 5.2 mmol/L (3.5-5.1); Protein, Total 7.4 g/dL (6.4-8.2); Sodium Level 144 mmol/L (136-145); Troponin (Emerg Dept Use Only) < 0.02 ng/mL (0.0-0.045)
--- NOTE | 2020-07-22 17:36 | RAD REPORT ---
EXAM DESCRIPTION: RAD - Chest Single View - 07/22/2020 5:08 pm CLINICAL HISTORY: AMS Chest pain. COMPARISON: Chest Single View dated 04/29/2018; Chest Single View dated 04/27/2018 FINDINGS: Portable technique limits examination quality. The lungs are grossly clear. The heart is normal in size. No displaced fractures. IMPRESSION: No acute intrathoracic process suspected.
[2020-07-22] MEDS ORDERED: NA CHLORIDE 0.9% 2,000 ML ONE (18:05)
--- NOTE | 2020-07-22 18:49 | ER ---
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 Pt's baseline as reported by EMS is GCS of 8. EMS reports BP 202/151, O2 sat 88% RA, HR 68 upon scene arrival. 16:04 Coronavirus screen: vomiting. Ebola Screen: Patient negative for fever greater than or aa5 equal to 101.5 degrees Fahrenheit, and additional compatible Ebola Virus Disease symptoms. Initial Sepsis Screen: Does the patient meet any 2 criteria? No. Patient's initial sepsis screen is negative. Does the patient have a suspected source of infection? No. Patient's initial sepsis screen is negative. Risk Assessment: Do you want to hurt yourself or someone else? Unable to obtain. Onset of symptoms was July 22, 2020. 16:04 Acuity: ALFREDA 2 aa5 16:04 Method Of Arrival: EMS: [facility] aa5 Historical: - Allergies: 16:05 No Known Allergies; aa5 - PMHx: 16:05 Anxiety; Bipolar disorder; colon cancer; constipation; Dementia; Folate defeciency aa5 anemia; Hyperlipidemia; Hypertension; Iron defeciency anemia; pseudobulbar affect; schizoaffective disorder; Oral Herpes; Contracture; - Immunization history:: Adult Immunizations unknown. - Social history:: Smoking status: unknown. Screenin:15 Abuse screen: Denies threats or abuse. Denies injuries from another. Nutritional ca1 screening: No deficits noted. Tuberculosis screening: No symptoms or risk factors identified. Fall Risk Secondary diagnosis (15 points) CVA, IV access (20 points). Gait- Impaired (20 pts.). Total Knowles Fall Scale indicates High Risk Score (45 or more points). Fall prevention measures have been instituted. Side Rails Up X 2 Frequent Obs/Assessments Occuring. Assessment: 16:15 General: Appears in no apparent distress. comfortable, Behavior is calm. Pain: Unable ca1 to use pain scale. Patient is disoriented. Neuro: Level of Consciousness is awake, alert, Oriented to none. Cardiovascular: Heart tones S1 S2 present Capillary refill < 3 seconds Patient's skin is warm and dry. Rhythm is sinus rhythm. Respiratory: Airway is patent Respiratory effort is even, unlabored, Respiratory pattern is regular, symmetrical, Breath sounds are clear bilaterally. GI: Abdomen is flat, non-distended, Bowel sounds present X 4 quads. Abd is soft and non tender X 4 quads. Reports vomiting, Vomitus seen on clothes at this time. : No signs and/or symptoms were reported regarding the genitourinary system. EENT: No signs and/or symptoms were reported regarding the EENT system. Derm: Skin is intact, is healthy with good turgor, Skin is pink, warm \T\ dry. Musculoskeletal: Circulation, motion, and sensation intact. Capillary refill < 3 seconds. 17:15 Reassessment: Patient appears in no apparent distress at this time. No changes from ca1 previously documented assessment. Patient and/or family updated on plan of care and expected duration. Pain level reassessed. 18:15 Reassessment: Patient appears in no apparent distress at this time. No changes from ca1 previously documented assessment. Patient and/or family updated on plan of care and expected duration. Pain level reassessed. 19:15 Reassessment: Patient appears in no apparent distress at this time. No changes from ca1 previously documented assessment. Patient and/or family updated on plan of care and expected duration. Pain level reassessed. 20:15 Reassessment: Patient appears in no apparent distress at this time. No changes from ca1 previously documented assessment. Patient and/or family updated on plan of care and expected duration. Pain level reassessed. 20:47 Reassessment: Patient appears in no apparent distress at this time. No changes from ca1 previously documented assessment. Patient and/or family updated on plan of care and expected duration. Pain level reassessed. 21:17 Reassessment: Dr. Hanks spoke with nurse at [facility] about plan of care lp1 for patient; Nurse understands plan for discharge. 22:43 Reassessment: Patient appears in no apparent distress at this time. No changes from ca1 previously documented assessment. 23:10 Reassessment: Patient appears in no apparent distress at this time. No changes from ca1 previously documented assessment. Awaiting ambulance to transport pt back to care home. Vital Signs: 16:05 BP 186 / 108; Pulse 65; Resp 20 S; Temp 100.0(A); aa5 17:00 BP 192 / 101; Pulse 86; Resp 18 S; Pulse Ox 100% on R/A; ca1 17:57 Weight 54.43 kg (R); ca1 17:59 Weight 49.9 kg; ll1 18:00 BP 174 / 106; Pulse 88; Resp 18 S; Pulse Ox 100% on R/A; ca1 18:51 BP 188 / 109; Pulse 93; Resp 18 S; Pulse Ox 100% on R/A; ca1 19:37 BP 171 / 93; Pulse 96; Resp 18 S; Pulse Ox 100% on R/A; ca1 20:37 BP 173 / 89; Pulse 89; Resp 17 S; Pulse Ox 100% on R/A; ca1 20:50 Temp 99.2(A); ca1 21:38 BP 151 / 89; Pulse 98; Resp 16 S; Pulse Ox 97% on R/A; ca1 22:20 BP 140 / 81; Pulse 92; Resp 16 S; Pulse Ox 98% on R/A; ca1 23:10 BP 147 / 60; Pulse 90; Resp 16 S; Pulse Ox 100% on R/A; ca1 17:59 guesstimated weight ll1 ED Course: 16:04 Patient arrived in ED. aa5 16:04 Arm band placed on Patient placed in an exam room, on a stretcher. aa5 16:06 Flori Donato, JAQUELINE is Primary Nurse. ca1 16:08 Triage completed. aa5 16:10 Damon Landa MD is Attending Physician. kdr 16:15 Patient has correct armband on for positive identification. Placed in gown. Bed in low ca1 position. Call light in reach. Side rails up X2. operation agent on. Pulse ox on. NIBP on. Warm blanket given. 16:45 Initial lab(s) drawn, by me, sent to lab. Inserted saline lock: 22 gauge in right aa5 forearm, using aseptic technique. Blood collected. 16:45 First set of blood cultures drawn by me. aa5 17:00 Second set of blood cultures drawn by me. aa5 17:08 Chest Single View XRAY In Process Unspecified. EDMS 23:33 No provider procedures requiring assistance completed. IV discontinued, intact, ca1 bleeding controlled, No redness/swelling at site. Pressure dressing applied. Administered Medications: 16:50 Drug: NS 0.9% (30 ml/kg) 30 ml/kg Route: IV; Rate: bolus; Site: right forearm; ca1 19:01 Follow up: Response: No adverse reaction; IV Status: Completed infusion; IV Intake: ca1 2000ml 19:00 Drug: hydrALAZINE 10 mg Route: IV; Rate: calculated rate; Site: right forearm; ca1 20:00 Follow up: Response: No adverse reaction; Blood pressure is lowered; IV Status: ca1 Completed infusion Intake: 19:01 IV: 2000ml; Total: 2000ml. ca1 Outcome: 18:48 Discharge ordered by MD. kdr 23:33 Discharged to care home. Report called to JAQUELINE Muñoztyre builder form completed. ca1 [facility]33 Condition: stable 23:33 Discharge instructions given to care home, EMS, Instructed on discharge instructions, follow up and referral plans. medication usage, Demonstrated understanding of instructions, follow-up care, medications, Prescriptions given X 1. 23:36 Patient left the ED. ca1 Signatures: Dispatcher [employer] EDMS Damon Landa MD MD kdr Christin Nieves RN RN aa5 Yesika Guerrero RN RN lp1 Flori Donato RN RN ca1 Mary Santiago RN RN ll1 Corrections: (The following items were deleted from the chart) 20:48 20:15 Reassessment: Patient appears in no apparent distress at this time. No changes ca1 from previously documented assessment. Patient and/or family updated on plan of care and expected duration. Pain level reassessed. Patient is alert, oriented x 3, equal unlabored respirations, skin warm/dry/pink. ca1
--- NOTE | 2020-07-22 18:49 | EDPHYS ---
Physician Documentation [facility] Name: Jammie Muñoz Age: 60 yrs Sex: Female : 1960 Arrival Date: 07/22/2020 Time: 16:04 Bed 17 Private MD: ED Physician Damon Landa HPI: 07/22 18:51 This 60 yrs old Black Female presents to ER via EMS with complaints of Vomiting. kdr 18:51 The patient presents to the emergency department with nausea, vomiting, that is kdr intermittent. Onset: The symptoms/episode began/occurred suddenly, today. Possible causes: unknown. The symptoms are aggravated by nothing. The symptoms are alleviated by nothing. Associated signs and symptoms: The patient has no apparent associated signs or symptoms. Severity of symptoms: At their worst the symptoms were mild in the emergency department the symptoms are unchanged. It is unknown whether or not the patient has had similar symptoms in the past. It is unknown whether or not the patient has recently seen a physician. AL reports projectile vomiting. 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 - Social history:: Smoking status: unknown. ROS: 18:51 Constitutional: Negative for fever, chills, and weight loss. kdr 18:51 Unable to obtain ROS due to patient is in a persistent vegetative state, patient's speech is incomprehensible. Exam: 18:57 Constitutional: This is a well developed, well nourished patient who is awake, alert, kdr and in no acute distress. Head/Face: Normocephalic, atraumatic. Eyes: Pupils equal round and reactive to light, extra-ocular motions intact. Lids and lashes normal. Conjunctiva and sclera are non-icteric and not injected. Cornea within normal limits. Periorbital areas with no swelling, redness, or edema. Neck: Trachea midline, no thyromegaly or masses palpated, and no cervical lymphadenopathy. Supple, full range of motion without nuchal rigidity, or vertebral point tenderness. No Meningismus. Chest/axilla: Normal chest wall appearance and motion. Nontender with no deformity. No lesions are appreciated. Cardiovascular: Regular rate and rhythm with a normal S1 and S2. No gallops, murmurs, or rubs. Normal PMI, no JVD. No pulse deficits. Respiratory: Lungs have equal breath sounds bilaterally, clear to auscultation and percussion. No rales, rhonchi or wheezes noted. No increased work of breathing, no retractions or nasal flaring. Abdomen/GI: Soft, non-tender, with normal bowel sounds. No distension or tympany. No guarding or rebound. No evidence of tenderness throughout. Back: No spinal tenderness. No costovertebral tenderness. Full range of motion. Skin: Warm, dry with normal turgor. Normal color with no rashes, no lesions, and no evidence of cellulitis. MS/ Extremity: Pulses equal, no cyanosis. Neurovascular intact. Full, normal range of motion. Neuro: Awake and alert, GCS 15, oriented to person, place, time, and situation. Cranial nerves II-XII grossly intact. Motor strength 5/5 in all extremities. Sensory grossly intact. Cerebellar exam normal. Normal gait. Psych: Awake, alert, with orientation to person, place and time. Behavior, mood, and affect are within normal limits. Vital Signs: 16:05 BP 186 / 108; Pulse 65; Resp 20 S; Temp 100.0(A); aa5 17:00 BP 192 / 101; Pulse 86; Resp 18 S; Pulse Ox 100% on R/A; ca1 17:57 Weight 54.43 kg (R); ca1 17:59 Weight 49.9 kg; ll1 18:00 BP 174 / 106; Pulse 88; Resp 18 S; Pulse Ox 100% on R/A; ca1 18:51 BP 188 / 109; Pulse 93; Resp 18 S; Pulse Ox 100% on R/A; ca1 19:37 BP 171 / 93; Pulse 96; Resp 18 S; Pulse Ox 100% on R/A; ca1 20:37 BP 173 / 89; Pulse 89; Resp 17 S; Pulse Ox 100% on R/A; ca1 20:50 Temp 99.2(A); ca1 21:38 BP 151 / 89; Pulse 98; Resp 16 S; Pulse Ox 97% on R/A; ca1 22:20 BP 140 / 81; Pulse 92; Resp 16 S; Pulse Ox 98% on R/A; ca1 23:10 BP 147 / 60; Pulse 90; Resp 16 S; Pulse Ox 100% on R/A; ca1 17:59 guesstimated weight ll1 MDM: 18:48 Patient medically screened. kdr 18:57 Data reviewed: vital signs, nurses notes, lab test result(s), EKG, radiologic studies. kdr Counseling: I had a detailed discussion with the patient and/or guardian regarding: the historical points, exam findings, and any diagnostic results supporting the discharge/admit diagnosis, lab results, radiology results, the need for outpatient follow up. 07/22 16:15 Order name: Amylase, Serum; Complete Time: 18:46 kdr 07/22 16:15 Order name: Basic Metabolic Panel; Complete Time: 18:46 kdr 07/22 16:15 Order name: Blood Culture Adult (2) kdr 07/22 16:15 Order name: CBC with Diff; Complete Time: 21:07 kdr 07/22 16:15 Order name: Ckmb; Complete Time: 18:46 kdr 07/22 16:15 Order name: CPK; Complete Time: 18:46 kdr 07/22 16:15 Order name: Lactate; Complete Time: 18:46 kdr 07/22 16:15 Order name: LFT's; Complete Time: 18:46 kdr 07/22 16:15 Order name: Lipase; Complete Time: 18:46 kdr 07/22 16:15 Order name: Procalcitonin; Complete Time: 21:07 kdr 07/22 16:15 Order name: Protime (+inr); Complete Time: 18:46 kdr 07/22 16:15 Order name: Ptt, Activated; Complete Time: 18:46 kdr 07/22 16:15 Order name: Troponin (emerg Dept Use Only); Complete Time: 18:46 kdr 07/22 16:15 Order name: Chest Single View XRAY; Complete Time: 18:46 kdr 07/22 16:15 Order name: Accucheck; Complete Time: 17:57 kdr 07/22 16:15 Order name: Cardiac monitoring; Complete Time: 17:08 kdr 07/22 16:15 Order name: EKG - Nurse/Tech; Complete Time: 17:08 kdr 07/22 16:15 Order name: IV Saline Lock - Large Bore; Complete Time: 17:08 [facility] 07/22 16:15 Order name: Labs collected and sent; Complete Time: 17: [facility] 07/22 16:15 Order name: O2 Per Protocol; Complete Time: 17: [facility] 07/22 16:15 Order name: O2 Sat Monitoring; Complete Time: 17: [facility] 07/22 20:19 Order name: CBC Smear Scan; Complete Time: 21:07 EDMS Administered Medications: 16:50 Drug: NS 0.9% (30 ml/kg) 30 ml/kg Route: IV; Rate: bolus; Site: right forearm; ca1 19:01 Follow up: Response: No adverse reaction; IV Status: Completed infusion; IV Intake: ca1 2000ml 19:00 Drug: hydrALAZINE 10 mg Route: IV; Rate: calculated rate; Site: right forearm; ca1 20:00 Follow up: Response: No adverse reaction; Blood pressure is lowered; IV Status: ca1 Completed infusion Disposition: 07/22/20 18:48 Discharged to Home. Impression: Vomiting. - Condition is Stable. - Discharge Instructions: Vomiting, Adult. - Prescriptions for Zofran 4 mg/5 mL Oral Solution - take 2.5 milliliter by ORAL route every 6 hours As needed; 40 milliliter. - Medication Reconciliation Form, Thank You Letter form. - Follow up: Private Physician; When: 2 - 3 days; Reason: If symptoms return, Further diagnostic work-up, Recheck today's complaints, Continuance of care, Re-evaluation by your physician. - Problem is new. - Symptoms are resolved. Signatures: Dispatcher [employer] [facility] Damon Landa MD MD [facility] Christin Nieves RN RN aa5 Flori Donato RN RN ca1 Ady Hanks MD MD [email or web address] Corrections: (The following items were deleted from the chart) 19:01 16:15 Urine Dipstick-Ancillary ordered. [facility] ca1 19:03 16:16 UA MICROSCOPIC+U.LAB.BRZ ordered. [facility] 23:36 18:48 07/22/2020 18:48 Discharged to Home. Impression: Vomiting. Condition is Stable. ca1 Forms are Medication Reconciliation Form, Thank You Letter, Antibiotic Education, Prescription Opioid Use. Follow up: Private Physician; When: 2 - 3 days; Reason: If symptoms return, Further diagnostic work-up, Recheck today's complaints, Continuance of care, Re-evaluation by your physician. Problem is new. Symptoms are resolved. kdr
[2020-07-22] MEDS ORDERED: HYDRALAZINE HCL 20 MG/ML VIAL ONE (19:13)
[2020-07-22 20:19] LABS: White Blood Cell Scan OK (OK)
[2020-07-22 20:20] LABS: Blood Morphology Comment NOT SEEN (NOT SEEN); Platelet Estimate ADEQ
[2020-07-22 23:53] VITALS: TEMP 99.2
[2020-07-22 23:57] VITALS: BP 147/60; O2SAT 100
== END 2020-07-22 23:36 | disposition home or self-care (01) ==
LOC: ER 15:55
DX: R11.10 Vomiting, unspecified (principal); I10 Essential (primary) hypertension; F03.90 Unspecified dementia, unspecified severity, without behavioral disturbance, psychotic disturbance, mood disturbance, and anxiety; F25.9 Schizoaffective disorder, unspecified; Z85.038 Personal history of other malignant neoplasm of large intestine
CPT/HCPCS: 96365; 93005; 87040 ×2; 85025; 80048; 36415; 82150; 82550; 85610; 80076; 83605; 85730; 84484; 82553; 83690; 84145; 71045; 99285; 96366; J0360; J7030